=== PATIENT | male | born 1975 | race African-American/Black ===

== ENCOUNTER 2016-12-21 17:21 | Emergency (ER) | payer MEDICAID ==
[~2016-12-21] VITALS: Ht 175.3 cm; Wt 80.0 kg
[~2016-12-21 17:21] MED LIST: BENZTROPINE; DIVALPROEX; LEVETIRACETAM; LEVOTHYROXINE; OXCARBAZEPINE; ZIPRASIDONE
[2016-12-21 17:51] VITALS: BP 121/91
== END 2016-12-21 23:29 | disposition left against medical advice (07) ==
LOC: ER 22:26
DX: J02.9 Acute pharyngitis, unspecified (principal); Z53.21 Procedure and treatment not carried out due to patient leaving prior to being seen by health care provider